=== PATIENT | male | born 1980 | race American Indian/Alaskan Native ===

== ENCOUNTER 2019-04-01 11:49 | Day surgery (SDC) | payer OTHER ==
[2019-03-29 16:09] VITALS: BMI 25.0
[~2019-04-01 11:49] MED LIST: ACETAMINOPHEN 325 MG TABLET (FP) PO PRN; ONDANSETRON 4 MG/2 ML VIAL IVPUSH PRN; oxyCODONE HCL 5 MG TABLET PO PRN
--- NOTE | 2019-04-01 14:26 | OP ---
Operative Note - Note: Operative Date: 04/01/19 Pre-Operative Diagnosis: [place] Renal stone Operation: Left ESWL Findings: 15 mm Left mid pole renal stone Post-Operative Diagnosis: Same as Pre-op Surgeon: Eben Vasquez Anesthesia: Fractional Estimated Blood Loss (mls): 0 Drains, Volume Out (mls): 0 Operative Report Dictated: Yes
[2019-04-01 16:11] VITALS: BP 114/62; PULSE 62; TEMP 98
--- NOTE | 2019-04-02 10:29 | OP ---
DATE OF OPERATION: 04/01/2019 PREOPERATIVE DIAGNOSIS: Left renal stone. POSTOPERATIVE DIAGNOSIS: Left renal stone. PROCEDURE: Left extracorporeal shock-wave lithotripsy. ATTENDING: Eben Trinh MD ANESTHESIA: Fractional. DESCRIPTION OF PROCEDURE: Patient was brought in the operating room and placed in a supine position on the operating room table. Ultrasonography and fluoroscopy were performed. A 15+-mm left midpole stone was identified, which was seen on fluoroscopy and ultrasonography. At this point, anesthesia and preoperative antibiotics were administered. Shock-wave lithotripsy was then started; 3000 impulses at 18 joules of power were administered to the stone. Excellent fragmentation of the stone was noted under real time ultrasonography and fluoroscopy. There were no complications noted. Patient tolerated the procedure very well. DISPOSITION: The patient went to recovery room. [facility] [id number]
== END 2019-04-01 16:05 | disposition home or self-care (01) ==
LOC: JASU-SURG 11:49
PROVIDERS: ATTEND Urology
PROC: 0TF4XZZ Fragmentation in Left Kidney Pelvis, External Approach (ICD-10-PCS; principal; 2019-04-01 12:30)
DX: N20.0 Calculus of kidney (principal)

== ENCOUNTER → 2019-06-24 | Day surgery (SDC) | payer OTHER ==
[2019-06-20 17:14] VITALS: BMI 25.0
[~2019-06-24] MED LIST changes: -ACETAMINOPHEN 325 MG TABLET (FP) PO PRN; +DEXAMETHASONE SOD PHOSPHATE 4 MG/1 ML VIAL ONE; +EPHEDRINE SULFATE/0.9% NACL/PF 50 MG/10 ML SYRINGE NR ONE; +LACTATED RINGERS SOLUTION 1,000 ML IV SCH; +LIDOCAINE HCL/PF 2% SDV 5ML VIAL ONE; +MIDAZOLAM HCL 2 MG/2 ML SINGLE DOSE VIAL ONE; +PROPOFOL 20 ML ONE
--- NOTE | 2019-06-24 15:58 | OP ---
Operative Note - Note: Operative Date: 06/24/19 Pre-Operative Diagnosis: Left renal stone Operation: cystoscopy/left retrograde pyelogram/left ureteroscopic laser lithotripsy/left ureteral stent exchange Findings: multiple small stones noted in kidney/old ureteral stent was occluded Post-Operative Diagnosis: Same as Pre-op Surgeon: Eben Vasquez Anesthesia: General Specimens Removed: left ureteral stent Drains & Tubes with Location: 12/19 left ureteral stent
[2019-06-24 17:29] VITALS: TEMP 97.9
[2019-06-24 17:52] VITALS: BP 115/62; PULSE 72
--- NOTE | 2019-06-24 18:14 | OP ---
DATE OF OPERATION: 06/24/2019 PREOPERATIVE DIAGNOSIS: Left renal stone. POSTOPERATIVE DIAGNOSIS: Left renal stone. PROCEDURE: Cystoscopy, left retrograde pyelogram, left ureteroscopic laser lithotripsy, left ureteral stent exchange. ATTENDING: Chris Morales MD ANESTHESIA: General. DESCRIPTION OF PROCEDURE: Patient has a history of a 1.5-cm stone that had not fragmented well under previous extracorporeal shock-wave lithotripsy. The patient comes in for ureteroscopic laser lithotripsy. Patient was brought in the operating room and placed in a supine position on the operating room table. Fluoroscopy was performed, and a stent is noted. At this point, patient is given general anesthesia. Patient is placed in dorsal lithotomy position, prepped and draped in the usual sterile manner. At this point, cystoscopy was performed. No evidence of neoplasm within the bladder is noted. There are no stones noted in the bladder. The left ureteral stent was removed. The wire was then passed proximally up to the kidney. At this point, a 2nd wire was also passed up to the kidney for security reasons. Using a 2nd wire, a navigator is placed over the wire. Using the navigator, a flexible ureteroscope was brought into the kidney. The kidney was inspected. Multiple small stone are noted. Laser lithotripsy was performed on those stones under direct visualization. A large stone measuring more than 6 mm was not found. The patient will require a CAT scan post procedure to evaluate the kidney more fully. All calices were entered. Patient tolerated the procedure very well. No complications were noted. A 6-English 26-cm stent was placed over a wire utilizing the Seldinger technique after the ureteroscope had been removed with no complications noted. The patient tolerated the procedure very well. CHRIS MORALES M.D. [id number]
--- NOTE | 2019-06-27 09:19 | PATH ---
Surgical Pathology Report Patient Name: MARY PATEL Med. Rec. #: [id number] /Age/Gender: 1980 (Age: 38) / M Account: [id number] Location: [facility] Taken: 06/24/2019 Received: 06/25/2019 Reported: 06/27/2019 Physicians: Eben Vasquez Specimen(s) Received URETERAL STENT, LEFT Clinical History Left ureteral stone Final Diagnosis URETERAL STENT, LEFT, REMOVAL: URETERAL STENT. MACROSCOPIC DIAGNOSIS. Electronically Signed Allyn Daniels M.D. Gross Description Received fresh labeled "left ureteral stent," is a 40 cm in length blue, coiled portion of tubing, consistent with a ureteral stent. No soft tissue is present. No sections are submitted, gross only. 06/25/201906/25/2019
== END | disposition home or self-care (01) ==
LOC: JASU-SURG 09:28
PROVIDERS: ATTEND Urology
PROC: 0TF48ZZ Fragmentation in Left Kidney Pelvis, Via Natural or Artificial Opening Endoscopic (ICD-10-PCS; principal; 2019-06-24 11:00)
PROC: 0T778DZ Dilation of Left Ureter with Intraluminal Device, Via Natural or Artificial Opening Endoscopic (ICD-10-PCS; 2019-06-24 11:00)
DX: N20.0 Calculus of kidney (principal)
CPT/HCPCS: 76000-TC-FY; 94760